=== PATIENT | male | born 1960 | race African-American/Black ===

== ENCOUNTER 2024-02-12 06:31 | Inpatient (IN) | payer SELFPAY ==
[2024-02-12] VITALS (31 sets, daily range): BP systolic 64–139; BP diastolic 49–96; PULSE 90–112; RESP 12–29; TEMP 36.22512–36.8072; O2SAT 95–100
[~2024-02-12] VITALS: Ht 172.7 cm; Wt 70.3 kg
[2024-02-12] MEDS: SODIUM CHLORIDE 0.9% 1,000 ML IV ONE ×3 (07:30→14:15)
[2024-02-12] MEDS ORDERED: VANCOMYCIN 1000MG/250ML 250 ML IV STA (07:40)
[2024-02-12] MEDS: PIPERACILLIN/TAZO 3.375G/50ML 50 ML IV ONE (08:07)
[2024-02-12] MEDS: VANCOMYCIN 1G PREMIX 200 ML IV SCH (08:26)
[2024-02-12 08:32] LABS: HEMATOCRIT. 58.6 % (42.0-52.0); HEMOGLOBIN. 18.3 g/dL (14.0-18.0); MEAN CORPUSCULAR HEMOGLOBIN 26.8 pg (28.0-32.0); MEAN CORPUSCULAR HGB CONC 31.2 g/dL (31.0-37.0); MEAN PLATELET VOLUME 9.5 fl (7.4-10.4); PLATELET 190 x1000/uL (130-400); RED BLOOD CELL COUNT 6.82 mill/uL (4.7-6.1); RED CELL DISTRIBUTION WIDTH 25.8 % (11.6-14.6); WHITE BLOOD COUNT 14.1 x1000/uL (4.5-11.0)
[2024-02-12 08:36] LABS: DIFFERENTIAL COMMENT 1
[2024-02-12 08:45] LABS: CHLORIDE 91 mEq/L (98-107); POTASSIUM 5.4 mEq/L (3.5-5.1); SODIUM 128 mEq/L (136-145)
[2024-02-12 08:51] LABS: CREATININE 2.1 mg/dL (0.6-1.3)
[2024-02-12 09:21] LABS: LACTIC ACID 4.4 mmol/L (0.4-2.0)
[2024-02-12] MEDS ORDERED: SODIUM PHOSPHATE 15 MMOL in SODIUM CHLORIDE 0.9% 245 ML IV PRN ×2 (09:45→19:30)
[2024-02-12] MEDS ORDERED: BLOOD SUGAR DIAGNOSTIC STRIP TEST PRN ×3 (09:45→19:30)
[2024-02-12] MEDS ORDERED: MAGNESIUM 2 G PREMIX 50 ML IV PRN ×2 (09:45→19:30)
[2024-02-12] MEDS ORDERED: POTASSIUM CHLORIDE 40 MEQ in SODIUM CHLORIDE 0.9% 230 ML IV PRN ×2 (09:45→19:30)
[2024-02-12] MEDS ORDERED: DEXT 5%/0.9% NACL 1,000 ML IV SCH (09:45)
[2024-02-12] MEDS ORDERED: INSULIN REGULAR (HUMULIN R) 1000UNITS/10ML VIAL IV ONE (09:45)
[2024-02-12] MEDS ORDERED: KCL 20MEQ/100ML PREMIX 100 ML IV PRN ×2 (09:45→19:30)
[2024-02-12] MEDS ORDERED: DEXTROSE 50% WATER 50ML SYRINGE IV PRN ×2 (09:45→19:30)
[2024-02-12 09:53] LABS: BG BASE EXCESS -16.2 mmol/L (-2.0-3.0); BG DEOXYHEMOGLOBIN 2.1 % (0.0-5.0); BG FRACTION INSPIRED OXYGEN 21; BG HCO3 ACT 6.5 mmol/L (21.0-28.0); BG METHEMOGLOBIN 0.3 % (0.5-1.5); BG OXYGEN SATURATION 97.9 % (94.0-98.0); BG OXYHEMOGLOBIN 96.6 % (94.0-98.0); BG PCO2 13.3 mmHg (35.0-48.0); BG PH 7.309 (7.350-7.450); BG PO2 112.5 mmHg (83.0-108.0); BG SAMPLE SITE LEFT RADIAL; BG TOTAL HEMOGLOBIN 16.8 g/dL (13.5-17.5); BG VENT MODE ROOM AIR
[2024-02-12] MEDS ORDERED: INSULIN REGULAR (DRIP) 100 UNITS in SODIUM CHLORIDE 0.9% 99 ML IV SCH (10:00)
[2024-02-12 10:01] LABS: CLARITY URINE CLEAR (CLEAR); COLOR URINE YELLOW (YELLOW); GLUCOSE URINE 3+ (NEGATIVE); KETONES URINE 3+ (NEGATIVE); LEUKOCYTE ESTERASE URINE NEGATIVE (NEGATIVE); NITRITE URINE NEGATIVE (NEGATIVE); OCCULT BLOOD URINE 3+ (NEGATIVE); PROTEIN URINE 1+ (NEGATIVE); SPECIFIC GRAVITY URINE 1.024 (1.005-1.030); UROBILINOGEN URINE 0.2 E.U./dL (0.2-1.0)
[2024-02-12] MEDS: BLOOD SUGAR DIAGNOSTIC STRIP TEST SCH ×2 (10:03→12:53)
[2024-02-12 10:18] LABS: *AMPHETAMINES SCREEN URINE NEGATIVE (NEGATIVE); *BARBITURATES SCREEN URINE NEGATIVE (NEGATIVE); *BENZODIAZEPINES SCREEN URINE NEGATIVE (NEGATIVE); *COCAINE SCREEN URINE NEGATIVE (NEGATIVE); METHADONE URINE SCREEN NEGATIVE (NEGATIVE); OPIATES URINE SCREEN NEGATIVE (NEGATIVE)
[2024-02-12 10:19] LABS: CANNABINOID URINE SCREEN PRESUMPTIVE POSITIVE (NEGATIVE); ECSTASY MDMA SCREEN URINE NEGATIVE (NEGATIVE); PHENCYCLIDINE URINE SCREEN NEGATIVE (NEGATIVE)
[2024-02-12] MEDS: INSULIN REGULAR 100U/100ML PMX 100 ML IV SCH (10:27)
[2024-02-12 10:47] LABS: ALANINE AMINOTRANSFERASE 32 IU/L (10-49); ASPARTATE AMINOTRANSFERASE 27 IU/L (<34); BETA HYDROXYBUTYRATE 10.9 mMol/L (0.0-0.3); BILIRUBIN DIRECT 0.2 mg/dL (<=3.0); BILIRUBIN TOTAL 0.9 mg/dL (0.1-1.0); CALCIUM 11.3 mg/dL (8.7-10.4); UREA NITROGEN BLOOD 38 mg/dL (9-23)
[2024-02-12 10:48] LABS: CARBON DIOXIDE < 10 mEq/L (21-32)
[2024-02-12 10:49] LABS: GLUCOSE > 700 mg/dL (70-105)
[2024-02-12 10:52] LABS: BACTERIA URINE TRACE; SQUAMOUS EPITHELIAL CELL URINE NONE SEEN /lpf (RARE/1+)
[2024-02-12 10:53] LABS: YEAST URINE RARE
[2024-02-12 10:54] LABS: RBC URINE NONE SEEN /hpf (0-2); WBC URINE 0-2 /hpf (0-2)
[2024-02-12 11:13] LABS: ANISOCYTOSIS 2+; PLATELET ESTIMATE NORMAL
[2024-02-12] MEDS ORDERED: CLONIDINE 0.1MG TABLET PO PRN (12:00)
[2024-02-12] MEDS ORDERED: ACETAMINOPHEN 325MG TABLET PO PRN (12:00)
[2024-02-12] MEDS ORDERED: IPRATROPIUM/ALBUTEROL 0.5-3(2.5)MG/3ML NEB HHN PRN (12:00)
[2024-02-12] MEDS: IPRATROPIUM/ALBUTEROL 0.5-3(2.5)MG/3ML NEB HHN SCH (12:35)
[2024-02-12] MEDS: VANCOMYCIN 500MG PREMIX 100 ML IV SCH (13:22)
[2024-02-12 13:33] LABS: BG BASE EXCESS -8.7 mmol/L (-2.0-3.0); BG CARBOXYHEMOGLOBIN 0.9 % (0.5-1.5); BG DEOXYHEMOGLOBIN 3.6 % (0.0-5.0); BG FRACTION INSPIRED OXYGEN 21; BG OXYGEN SATURATION 96.4 % (94.0-98.0); BG OXYHEMOGLOBIN 95.5 % (94.0-98.0); BG PCO2 21.1 mmHg (35.0-48.0); BG PH 7.406 (7.350-7.450); BG PO2 76.6 mmHg (83.0-108.0); BG SAMPLE SITE LEFT RADIAL; BG TOTAL HEMOGLOBIN 17.8 g/dL (13.5-17.5); BG VENT MODE ROOM AIR
[2024-02-12] MEDS: PIPERACILLIN/TAZO 3.375G/50ML 50 ML IV SCH (16:15)
[2024-02-12 16:43] LABS: CHLORIDE 107 mEq/L (98-107); POTASSIUM 3.5 mEq/L (3.5-5.1); SODIUM 139 mEq/L (136-145)
[2024-02-12 16:44] LABS: CALCIUM 10.5 mg/dL (8.7-10.4); CARBON DIOXIDE 19 mEq/L (21-32)
[2024-02-12 16:49] LABS: CREATININE 1.5 mg/dL (0.6-1.3); UREA NITROGEN BLOOD 42 mg/dL (9-23)
[2024-02-12 16:51] LABS: PHOSPHORUS 1.2 mg/dL (2.5-4.9)
[2024-02-12 16:55] LABS: GLUCOSE 250 mg/dL (70-105)
[2024-02-12 18:34] LABS: BG BASE EXCESS -6.2 mmol/L (-2.0-3.0); BG CARBOXYHEMOGLOBIN 0.8 % (0.5-1.5); BG DEOXYHEMOGLOBIN 1.6 % (0.0-5.0); BG FRACTION INSPIRED OXYGEN 21; BG HCO3 ACT 16.1 mmol/L (21.0-28.0); BG METHEMOGLOBIN 0.3 % (0.5-1.5); BG OXYGEN SATURATION 98.4 % (94.0-98.0); BG OXYHEMOGLOBIN 97.3 % (94.0-98.0); BG PCO2 25.6 mmHg (35.0-48.0); BG PH 7.417 (7.350-7.450); BG PO2 106.5 mmHg (83.0-108.0); BG SAMPLE SITE RIGHT RADIAL; BG TOTAL HEMOGLOBIN 16.9 g/dL (13.5-17.5); BG VENT MODE ROOM AIR
[2024-02-12] MEDS: NOREPINEPHRINE 8MG/250ML PMX 250 ML IV PRN (18:38)
[2024-02-12] MEDS ORDERED: SODIUM CHLORIDE 0.9% 1,000 ML IV PRN (19:30)
[2024-02-12] MEDS ORDERED: SODIUM PHOSPHATE 30 MMOL in DEXT 5% WATER 490 ML IV ONE (19:45)
[2024-02-12] MEDS ORDERED: INSULIN REGULAR 100U/100ML PMX 100 ML IV SCH (20:00)
[2024-02-12 20:42] LABS: CHLORIDE 113 mEq/L (98-107); POTASSIUM 3.4 mEq/L (3.5-5.1); SODIUM 142 mEq/L (136-145)
[2024-02-12 20:43] LABS: CARBON DIOXIDE 19 mEq/L (21-32)
[2024-02-12] MEDS: SODIUM PHOSPHATE 30 MMOL in SODIUM CHLORIDE 0.9% 490 ML IV NR (20:45)
[2024-02-12 20:48] LABS: CREATININE 1.4 mg/dL (0.6-1.3); GLUCOSE 194 mg/dL (70-105); INR 0.9; PROTHROMBIN TIME 10.6 sec (9.6-11.0)
[2024-02-12 20:49] LABS: UREA NITROGEN BLOOD 35 mg/dL (9-23)
[2024-02-12 20:50] LABS: ALANINE AMINOTRANSFERASE 28 IU/L (10-49); ALBUMIN 3.3 g/dL (3.2-4.8); ASPARTATE AMINOTRANSFERASE 31 IU/L (<34); BILIRUBIN DIRECT 0.2 mg/dL (<=3.0); PHOSPHORUS 1.4 mg/dL (2.5-4.9)
[2024-02-12 20:51] LABS: BILIRUBIN TOTAL 0.5 mg/dL (0.1-1.0); PROTEIN TOTAL 5.7 g/dL (6.0-8.3)
[2024-02-12 21:06] LABS: TROPONIN I HIGH SENSITIVITY 139 ng/L (3.0-53)
[2024-02-12] MEDS: ASPIRIN 325MG EC TABLET PO NR (21:15)
[2024-02-12] MEDS: DEXT 5%/0.9% NACL 1,000 ML IV PRN (23:38)
[2024-02-12] MEDS: POTASSIUM CHLORIDE 10 MEQ/50 ML IV PRN (23:39)
[2024-02-13] VITALS (39 sets, daily range): BP systolic 88–127; BP diastolic 54–89; PULSE 88–112; RESP 17–37; TEMP 36.16956–36.89184; O2SAT 95–98
[2024-02-13 01:14] LABS: CHLORIDE 114 mEq/L (98-107); POTASSIUM 3.4 mEq/L (3.5-5.1); SODIUM 144 mEq/L (136-145)
[2024-02-13 01:15] LABS: CALCIUM 9.8 mg/dL (8.7-10.4); CARBON DIOXIDE 19 mEq/L (21-32)
[2024-02-13 01:20] LABS: CREATININE 1.2 mg/dL (0.6-1.3); GLUCOSE 156 mg/dL (70-105); UREA NITROGEN BLOOD 30 mg/dL (9-23)
[2024-02-13 01:22] LABS: PHOSPHORUS 2.9 mg/dL (2.5-4.9)
[2024-02-13] MEDS ORDERED: DEXTROSE 50% WATER 50ML SYRINGE IV PRN ×2 (02:15→11:30)
[2024-02-13] MEDS: DEXT 5%/0.9% NACL 1,000 ML IV SCH (02:17)
[2024-02-13] MEDS: INSULIN LISPRO 100 UNITS/ML SUBCUT SCH ×2 (02:18→13:32)
[2024-02-13] MEDS: BLOOD SUGAR DIAGNOSTIC STRIP TEST SCH ×3 (02:18→11:30)
[2024-02-13 05:01] LABS: BASOPHILS % 0.1 % (0.0-2.0); EOSINOPHILS % 0.3 % (0.0-5.0); HEMATOCRIT. 43.7 % (42.0-52.0); HEMOGLOBIN. 14.9 g/dL (14.0-18.0); LYMPHOCYTES % 15.1 % (20.0-50.0); MEAN CORPUSCULAR HEMOGLOBIN 27.3 pg (28.0-32.0); MEAN CORPUSCULAR VOLUME 80.1 fL (80.0-94.0); MEAN PLATELET VOLUME 8.7 fl (7.4-10.4); MONOCYTES % 4.7 % (2.0-8.0); NEUTROPHILS % 79.8 % (40.0-76.0); PLATELET 154 x1000/uL (130-400); RED BLOOD CELL COUNT 5.46 mill/uL (4.7-6.1); RED CELL DISTRIBUTION WIDTH 25.3 % (11.6-14.6); WHITE BLOOD COUNT 8.1 x1000/uL (4.5-11.0)
[2024-02-13 05:19] LABS: CARBON DIOXIDE 21 mEq/L (21-32); CHLORIDE 113 mEq/L (98-107); POTASSIUM 3.5 mEq/L (3.5-5.1); SODIUM 145 mEq/L (136-145)
[2024-02-13 05:21] LABS: CALCIUM 9.8 mg/dL (8.7-10.4)
[2024-02-13 05:25] LABS: CREATININE 1.2 mg/dL (0.6-1.3)
[2024-02-13 05:26] LABS: GLUCOSE 191 mg/dL (70-105); UREA NITROGEN BLOOD 27 mg/dL (9-23)
[2024-02-13] MEDS: SODIUM CHLORIDE 0.45% 1,000 ML IV SCH (06:15)
[2024-02-13 06:43] LABS: CHLORIDE 111 mEq/L (98-107); POTASSIUM 3.5 mEq/L (3.5-5.1); SODIUM 143 mEq/L (136-145)
[2024-02-13 06:44] LABS: CALCIUM 9.6 mg/dL (8.7-10.4); CARBON DIOXIDE 19 mEq/L (21-32)
[2024-02-13 06:49] LABS: CREATININE 1.1 mg/dL (0.6-1.3); GLUCOSE 263 mg/dL (70-105); UREA NITROGEN BLOOD 24 mg/dL (9-23)
[2024-02-13 07:12] LABS: DIFFERENTIAL COMMENT 1
[2024-02-13] MEDS: ASPIRIN 81MG TABLET PO SCH (08:05)
[2024-02-13 09:53] LABS: CHLORIDE 112 mEq/L (98-107); POTASSIUM 3.3 mEq/L (3.5-5.1); SODIUM 141 mEq/L (136-145)
[2024-02-13 09:54] LABS: CARBON DIOXIDE 21 mEq/L (21-32)
[2024-02-13 09:55] LABS: CALCIUM 9.8 mg/dL (8.7-10.4)
[2024-02-13 09:59] LABS: GLUCOSE 238 mg/dL (70-105); TRIGLYCERIDE 143 mg/dL (0-150)
[2024-02-13 10:00] LABS: LDL CHOLESTEROL 89 mg/dL (5-100); UREA NITROGEN BLOOD 21 mg/dL (9-23)
[2024-02-13 10:02] LABS: CHOLESTEROL 178 mg/dL (<200); HDL CHOLESTEROL 51 mg/dL (>55)
[2024-02-13] MEDS: ENOXAPARIN 40MG/0.4ML SYR SUBCUT SCH (10:22)
[2024-02-13] MEDS: INSULIN GLARGINE 100 UNITS/ML SUBCUT SCH (10:23)
[2024-02-13 10:28] LABS: TROPONIN I HIGH SENSITIVITY 97 ng/L (3.0-53)
[2024-02-13] MEDS ORDERED: KCL 20MEQ/100ML PREMIX 100 ML IV ONE (10:30)
[2024-02-13] MEDS: FAMOTIDINE 20MG TABLET PO SCH (10:51)
[2024-02-13] MEDS ORDERED: INSULIN LISPRO 100 UNITS/ML SUBCUT SCH ×2 (11:30)
[2024-02-13] MEDS ORDERED: FLUCONAZOLE 150MG TABLET PO SCH (13:30)
[2024-02-13] MEDS: KCL 10MEQ/50ML PREMIX 50 ML IV SCH (13:31)
[2024-02-13] MEDS ORDERED: PNEUMOCOCCAL 20-VAL CONJ-DIP CRM 0.5ML IM ONE (15:00)
[2024-02-13] MEDS: FLUCONAZOLE 100MG TABLET PO SCH (15:58)
[2024-02-13 16:56] LABS: CARBON DIOXIDE 20 mEq/L (21-32); CHLORIDE 111 mEq/L (98-107); POTASSIUM 3.1 mEq/L (3.5-5.1); SODIUM 140 mEq/L (136-145)
[2024-02-13 16:57] LABS: CALCIUM 9.7 mg/dL (8.7-10.4)
[2024-02-13 17:02] LABS: CREATININE 0.9 mg/dL (0.6-1.3); GLUCOSE 168 mg/dL (70-105); UREA NITROGEN BLOOD 17 mg/dL (9-23)
[2024-02-13] MEDS: POTASSIUM CHLORIDE 20MEQ TABLET SR PO NR (17:25)
[2024-02-13] MEDS: ONDANSETRON HCL 4MG/2ML INJ IV PRN (22:02)
[2024-02-14] VITALS (16 sets, daily range): BP systolic 110–120; BP diastolic 69–87; PULSE 74–92; RESP 16–20; TEMP 36.28068–36.72516; O2SAT 97–100
[2024-02-14 07:53] LABS: CHLORIDE 108 mEq/L (98-107); POTASSIUM 3.6 mEq/L (3.5-5.1); SODIUM 137 mEq/L (136-145)
[2024-02-14 07:54] LABS: CARBON DIOXIDE 21 mEq/L (21-32)
[2024-02-14 07:55] LABS: CALCIUM 9.4 mg/dL (8.7-10.4)
[2024-02-14 07:59] LABS: CREATININE 0.7 mg/dL (0.6-1.3); GLUCOSE 190 mg/dL (70-105)
[2024-02-14 08:00] LABS: UREA NITROGEN BLOOD 12 mg/dL (9-23)
[2024-02-14 08:03] LABS: HEMATOCRIT 42.2 % (42.0-52.0); HEMOGLOBIN 14.1 g/dL (14.0-18.0); MEAN CORPUSCULAR HEMOGLOBIN 26.7 pg (28.0-32.0); MEAN CORPUSCULAR HGB CONC 33.5 g/dL (31.0-37.0); MEAN CORPUSCULAR VOLUME 79.7 fL (80.0-94.0); PLATELET 137 x1000/uL (130-400); RED BLOOD CELL COUNT 5.29 mill/uL (4.7-6.1); RED CELL DISTRIBUTION WIDTH 25.7 % (11.6-14.6)
[2024-02-14] MEDS: ACETAMINOPHEN 325MG TABLET PO PRN (08:50)
[2024-02-14] MEDS: FLUCONAZOLE 100MG TABLET PO SCH (09:00)
[2024-02-14] MEDS: DOCUSATE SODIUM 100MG CAPSULE PO PRN (15:02)
[2024-02-14] MEDS: GUAIFENESIN 200MG/10ML SUGAR FREE UDC PO PRN (17:57)
[2024-02-14 18:36] LABS: TROPONIN I HIGH SENSITIVITY 44 ng/L (3.0-53)
[2024-02-15] VITALS (7 sets, daily range): BP systolic 124–129; BP diastolic 80–86; PULSE 69–95; RESP 16–20; TEMP 36.16956–36.44736; O2SAT 98–100
== END 2024-02-15 16:45 | disposition home or self-care (01) | DRG 720 ==
LOC: ER 06:31 → MICUSO 10:51 → EDBEDREQTM 11:28 → EDBEDREQ 11:28 → 6WST 02-13 19:00
PROVIDERS: ADMIT Hospitalist; ATTEND Hospitalist
PROC: 06HY33Z Insertion of Infusion Device into Lower Vein, Percutaneous Approach (ICD-10-PCS; principal; 2024-02-12)
DX: A41.9 Sepsis, unspecified organism (principal); G92.8 Other toxic encephalopathy; E11.10 Type 2 diabetes mellitus with ketoacidosis without coma; N17.9 Acute kidney failure, unspecified; N39.0 Urinary tract infection, site not specified; N18.9 Chronic kidney disease, unspecified; E86.0 Dehydration; E87.1 Hypo-osmolality and hyponatremia; E87.6 Hypokalemia; E87.5 Hyperkalemia; M35.4 Diffuse (eosinophilic) fasciitis; E83.39 Other disorders of phosphorus metabolism; I49.1 Atrial premature depolarization; I12.9 Hypertensive chronic kidney disease with stage 1 through stage 4 chronic kidney disease, or unspecified chronic kidney disease; E11.22 Type 2 diabetes mellitus with diabetic chronic kidney disease; T38.0X5A Adverse effect of glucocorticoids and synthetic analogues, initial encounter; Z88.0 Allergy status to penicillin; Z86.718 Personal history of other venous thrombosis and embolism; Y92.89 Other specified places as the place of occurrence of the external cause
CPT/HCPCS: 36415; 36600; 71045; 80048; 80061; 80076; 80202; 80305; 81003; 82010; 82375; 82805; 82962; 83036; 83605; 83735; 83880; 83930; 84100; 84145; 84484; 85025; 85027; 86705; 87340; 90732; 93005; 93970; 94640; 97166; 99285; J1650; J1815; J2405; J2543; J3370; J3480; J3490; J7030; J7042; J7050